=== PATIENT | male | born 1965 | race Caucasian/White ===

== ENCOUNTER 2017-10-09 05:38 | Emergency (ER) | payer MEDICAID ==
[~2017-10-09] VITALS: Ht 182.9 cm; Wt 90.7 kg
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
--- NOTE | 2017-10-09 06:24 | NUR ---
PT TO CT
--- NOTE | 2017-10-09 06:28 | NUR ---
C-COLLAR OUT OF STOCK IN [facility]. CALLED [facility] [place] FOR C-COLLAR, NO REPSONSE. WILL TRY AGAIN AT A LATER TIME. MADE AWARE
[2017-10-09] MEDS ORDERED: oxyCODONE/APAP (5/325 MG) 1 UDTAB TABLET PO ONE (06:30)
[2017-10-09] MEDS ORDERED: oxyCODONE/APAP (5/325 MG) 1 UDTAB TABLET ONE (06:55)
--- NOTE | 2017-10-09 07:18 | NUR ---
REPORT GIVEN TO MARLEN FUENTES FOR [facility]
[2017-10-09] MEDS ORDERED: KETOROLAC TROMETHAMINE INJ 60 MG/2 ML VIAL IM ONE ×2 (07:30→07:31)
[2017-10-09] MEDS ORDERED: MORPHINE SULFATE INJ 4 MG/ML DISP.SYRIN ONE ×2 (07:44→08:40)
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
[2017-10-09] MEDS ORDERED: MORPHINE SULFATE INJ 2 MG/ML DISP.SYRIN IM ONE (08:00)
[2017-10-09] MEDS ORDERED: MORPHINE SULFATE INJ 2 MG/ML DISP.SYRIN IV ONE ×2 (08:30→10:00)
[2017-10-09 08:38] LABS: BASOPHILS # (AUTO) 0.1 /CMM (0.0-0.2); EOSINOPHILS % (AUTO) 1.7 % (0.0-6.0); HEMATOCRIT 39 % (39-51); HEMOGLOBIN 13.4 g/dL (13.5-17.5); LYMPHOCYTES # (AUTO) 2.1 /CMM (0.8-4.8); LYMPHOCYTES % (AUTO) 20.9 % (20.0-44.0); MEAN CORPUSCULAR HEMOGLOBIN 33 PG (26.0-33.0); MEAN CORPUSCULAR HGB CONC 34 g/dl (31.0-36.0); MEAN CORPUSCULAR VOLUME 95 fL (80-96); MONOCYTES # (AUTO) 0.7 /CMM (0.1-1.30); NEUTROPHILS # (AUTO) 7.1 /CMM (1.8-8.9); NEUTROPHILS % (AUTO) 69.4 % (43.0-81.0); PLATELET COUNT (AUTO) 255 /CMM (150-450); RED BLOOD CELL COUNT(AUTO) 4.11 MIL/uL (4.5-6.0); WHITE BLOOD COUNT (AUTO) 10.3 K/uL (4.3-11.0)
--- NOTE | 2017-10-09 08:42 | NUR ---
PT X-RAY RESULTS OBTAINED MD SPOKE WITH PT ABOUT RESULTS PIV PLACED LABS, EKG, AND MORE SEDATION IMPLEMENTED. PT WAITNG FOR TRANSFER ORDERS Addendum: 10/09/17 at 0845 by RUSTY LAST TIME PT ATE WAS 2000 LAST NIGHT AND LAST BOWEL MOVEMNT YESILA 10/08 IN AM
[2017-10-09 08:54] LABS: ALANINE AMINOTRANSFERASE 62 U/L (12-78); ALBUMIN 4.1 g/dL (3.4-5.0); ALKALINE PHOSPHATASE 99 U/L (46-116); ASPARTATE AMINOTRANSFERASE 30 U/L (15-37); BILIRUBIN,DIRECT 0.1 mg/dL (0.0-0.2); BILIRUBIN,TOTAL 0.4 mg/dL (0.2-1.0); CALCIUM, SERUM 8.3 mg/dL (8.5-10.1); CARBON DIOXIDE 24 mmol/L (21-32); CHLORIDE 110 mmol/L (98-107); CREATININE 1.2 mg/dL (0.6-1.3); GLUCOSE 86 mg/dL (74-106); POTASSIUM 3.3 mmol/L (3.5-5.1); SODIUM SERUM 145 mmol/L (136-145); TOTAL PROTEIN, SERUM 7.2 g/dL (6.4-8.2); UREA NITROGEN, BLOOD 18 mg/dL (7-18)
[2017-10-09 08:56] LABS: INR 0.93 (0.87-1.13)
[2017-10-09 08:58] LABS: TROPONIN I < 0.017 ng/mL (0.00-0.056)
--- NOTE | 2017-10-09 09:02 | NUR ---
FAXED THE FACESHEET AND CLINICAL REPORT TO [facility] (BERTHA) FAX# [phone]. [phone].
[2017-10-09] MEDS ORDERED: MORPHINE SULFATE INJ 2 MG/ML DISP.SYRIN ONE (10:09)
--- NOTE | 2017-10-09 10:28 | NUR ---
[facility] - ETA 1050 PATIENT WILL BE TRANSFERRED TO [facility] - ROOM 301-B NUMBER FOR REPORT - - NURSE ELISABETH
[2017-10-09 10:31] VITALS: BP 148/95
--- NOTE | 2017-10-09 10:40 | NUR ---
CALLED RN TO RN REPORT GIVEN TO HUMBERTO. TRANSFER TO [facility] PT ROOM 301-B
[2017-10-09] MEDS ORDERED: LORAZEPAM INJ 2 MG/ML VIAL ONE (10:44)
[2017-10-09] MEDS ORDERED: LORAZEPAM INJ 2 MG/ML VIAL IV ONE (11:00)
== END 2017-10-09 10:55 | disposition short-term general hospital (02) ==
LOC: ER 05:43 → EDBD 05:43 → ER 10:55
DX: S72.141A Displaced intertrochanteric fracture of right femur, initial encounter for closed fracture (principal); S00.83XA Contusion of other part of head, initial encounter; F32.9 Major depressive disorder, single episode, unspecified; F10.20 Alcohol dependence, uncomplicated; F17.200 Nicotine dependence, unspecified, uncomplicated; Z79.82 Long term (current) use of aspirin; Y90.9 Presence of alcohol in blood, level not specified; V29.49XA Motorcycle driver injured in collision with other motor vehicles in traffic accident, initial encounter; Y93.89 Activity, other specified; Y92.410 Unspecified street and highway as the place of occurrence of the external cause; Y99.8 Other external cause status
CPT/HCPCS: 36415; 70450; 72125; 73502; 80048; 80076; 84484; 85025; 85610; 85730; 86850; 93005; 96372; 96374; 96375; 96376; 99285; A4606; J2060; J2270 ×3; Z7610; J1885

== ENCOUNTER 2018-02-28 17:19 | Emergency (ER) | payer MEDICAID ==
[~2018-02-28] VITALS: Ht 182.9 cm; Wt 98.9 kg
--- NOTE | 2018-02-28 17:40 | NUR ---
BIB SELF 52 YEAR OLD MALE C/O NECK PAIN, RT HIP/KNEE/MORA/ANKLE PAIN FROM TAKING DOWN ORNAMENTS FROM [employer] PER PT. ALERT AND ORIENTED X4, BREATHING EVEN AND UNLABORED WITH NO DISTRESS NOTED. SKIN WARM TO TOUCH AND INTACT. AWAITING TO BE SEEN BY
[2018-02-28] MEDS ORDERED: IBUPROFEN 600 MG TABLET PO ONE ×2 (18:00→18:01)
--- NOTE | 2018-02-28 18:45 | NUR ---
X-RAY TECH AT BEDSIDE
[2018-02-28] MEDS ORDERED: HYDROMORPHONE INJ 2 MG/ML DISP.SYRIN ONE ×3 (18:55→22:38)
[2018-02-28] MEDS ORDERED: HYDROMORPHONE INJ 0.5 MG/0.5 ML SYRINGE IV ONE (19:00)
[2018-02-28] MEDS ORDERED: MORPHINE SULFATE INJ 10 MG/ML DISP.SYRIN IV ONE (19:00)
--- NOTE | 2018-02-28 19:02 | NUR ---
DAYANARA FROM PHARMACY STATED NO MORPHINE AVAILABLE. RELAYED MESSEGE TO JOSE LUIS GARCIA. RECVD VERBAL ORDER FROM JOSE LUIS GARCIA OK TO GIVE 1MG HYDROMPRPHONE FOR RIGHT LEG PAIN.
[2018-02-28 19:09] VITALS: BP 144/92
--- NOTE | 2018-02-28 19:20 | NUR ---
REPORT GIVEN TO BARRETT TO CONTINUE CONITNUITY OF CARE.
--- NOTE | 2018-02-28 20:09 | NUR ---
PT TAKEN TO RADIOLOGY.
[2018-02-28] MEDS ORDERED: HYDROMORPHONE 1 MG/1 ML DISP.SYRIN IV ONE (20:30)
--- NOTE | 2018-02-28 20:55 | NUR ---
PT ACCEPTED AT [facility] GOING TO [address]. NUMBER FOR REPORT [id number] NURSE WILL BE FARZAD. ACCEPTING MD BUSTILLO. TRANSPORT INFO TO FOLLOW.
--- NOTE | 2018-02-28 21:05 | NUR ---
ETA 90 MINUTES FOR AMBULANCE
--- NOTE | 2018-02-28 21:12 | NUR ---
REPORT GIVEN TO FARZAD GEE AT [facility].
[2018-02-28] MEDS ORDERED: HYDROMORPHONE INJ 0.5 MG/0.5 ML SYRINGE IM ONE (22:30)
== END 2018-02-28 23:10 | disposition short-term general hospital (02) ==
LOC: ER 17:19
DX: S82.141A Displaced bicondylar fracture of right tibia, initial encounter for closed fracture (principal); S72.141A Displaced intertrochanteric fracture of right femur, initial encounter for closed fracture; S82.491A Other fracture of shaft of right fibula, initial encounter for closed fracture; F32.9 Major depressive disorder, single episode, unspecified; F10.20 Alcohol dependence, uncomplicated; F17.200 Nicotine dependence, unspecified, uncomplicated; Y90.9 Presence of alcohol in blood, level not specified; Z96.612 Presence of left artificial shoulder joint; W11.XXXA Fall on and from ladder, initial encounter; Y93.89 Activity, other specified; Y92.89 Other specified places as the place of occurrence of the external cause; Y99.8 Other external cause status
CPT/HCPCS: 73502; 73564; 73590; 73610; 73700; 96374; 96376; 99285; A4606; J1170 ×3; Z7610